=== PATIENT | female | born 1990 | race Caucasian/White ===

== ENCOUNTER 2017-06-26 13:28 | Emergency (ER) | payer BC, OTHER ==
[~2017-06-26] VITALS: Ht 162.6 cm; Wt 79.1 kg
[2017-06-26 13:27] VITALS: BP 107/65; PULSE 87; TEMP 97.8
[~2017-06-26 13:28] MED LIST: PRENATAL1 TA7 PO; TYLENOL 500MG500 MG PO
[2017-06-26 13:35] VITALS: BP 99/63; PULSE 88
[2017-06-26 14:21] VITALS: TEMP 97.9
[2017-06-26 15:18] LABS: BASO % 0.2 % (0.0-2.0); EOS % 0.3 % (0-4.0); GRAN # 4.4 (1.4-6.5); GRAN % 76.6 % (42.2-75.2); HEMATOCRIT 38.6 % (37.0-47.0); HEMOGLOBIN 12.7 g/dl (12.5-16.0); LYMPH # 0.9 (1.2-3.4); LYMPH % 14.9 % (20.0-51.0); MEAN CELL VOLUME 94 fl (80.0-100.0); MEAN CORPUSCULAR HEMOGLOBIN 31 pg (27.0-31.0); MEAN CORPUSCULAR HGB CONC 33 g/dl (33.0-37.0); MEAN PLATELET VOLUME 9.5 fl (7.4-10.4); MONO # 0.4 (0.1-0.6); MONO % 7.5 % (1.7-9.3); PLATELET COUNT 186 K/mm3 (130-400); RED BLOOD COUNT 4.12 M/mm3 (4.10-5.30); REDCELL DISTRIBUTION WIDTH-CV 12.9 % (11.5-14.5)
[2017-06-26 15:29] LABS: ALBUMIN 3.5 gm/dL (3.5-5.0); BILIRUBIN,TOTAL 0.5 mg/dL (0.0-1.0); CREATININE, serum 0.58 mg/dL (0.52-1.25); POTASSIUM 3.4 mmol/L (3.4-5.0); TOTAL PROTEIN 6.8 gm/dL (6.4-8.2)
[2017-06-26 15:44] LABS: COLLECTION METHOD CLEAN CATCH
[2017-06-26 15:49] LABS: PH 6 (5-8); SQUAMOUS EPITHELIAL None Seen /hpf; URINE APPEARANCE Clear; URINE BACTERIA None Seen /hpf; URINE BILIRUBIN Negative (NEGATIVE); URINE BLOOD Negative (NEGATIVE); URINE COLOR Yellow; URINE GLUCOSE Negative (NEGATIVE); URINE KETONE Trace (NEGATIVE); URINE LEUKOCYTE ESTERASE Negative (NEGATIVE); URINE NITRATE Negative (NEGATIVE); URINE PROTEIN(semi-quant) Negative (NEGATIVE); URINE RBC 0-2 /hpf; URINE UROBILINOGEN Negative (NEGATIVE)
[2017-06-26 16:31] VITALS: BP 109/75; PULSE 81
== END 2017-06-26 16:31 | disposition home or self-care (01) ==
LOC: COL.ER 13:28 → LDRO 13:28 → EDSTATUS 13:55 → COL.ER 16:31
PROVIDERS: Emergency Medicine
DX: O26.893 Other specified pregnancy related conditions, third trimester (principal); E86.9 Volume depletion, unspecified; R19.7 Diarrhea, unspecified; O21.9 Vomiting of pregnancy, unspecified; Z3A.33 33 weeks gestation of pregnancy
CPT/HCPCS: J2550; J7030

== ENCOUNTER 2017-08-10 06:33 | Inpatient (IN) | payer OTHER ==
[~2017-08-10] VITALS: Ht 162.6 cm; Wt 82.3 kg
[2017-08-10] VITALS (19 sets, daily range): BP systolic 95–162; BP diastolic 45–98; PULSE 62–78; TEMP 97.3–98.5
[2017-08-10 11:40] LABS: BASO % 0.3 % (0.0-2.0); EOS # 0.1 (0.0-0.7); GRAN # 6.2 (1.4-6.5); GRAN % 65.8 % (42.2-75.2); HEMATOCRIT 38.5 % (37.0-47.0); HEMOGLOBIN 12.7 g/dl (12.5-16.0); LYMPH # 2.1 (1.2-3.4); LYMPH % 22.4 % (20.0-51.0); MEAN CELL VOLUME 93 fl (80.0-100.0); MEAN CORPUSCULAR HEMOGLOBIN 31 pg (27.0-31.0); MEAN CORPUSCULAR HGB CONC 33 g/dl (33.0-37.0); MONO # 0.9 (0.1-0.6); MONO % 9.7 % (1.7-9.3); PLATELET COUNT 201 K/mm3 (130-400); RED BLOOD COUNT 4.14 M/mm3 (4.10-5.30); REDCELL DISTRIBUTION WIDTH-CV 14.6 % (11.5-14.5)
[2017-08-11] VITALS: BP 105/66; PULSE 72; TEMP 98.3
[2017-08-11 07:09] LABS: HEMATOCRIT 34.2 % (37.0-47.0); HEMOGLOBIN 11.3 g/dl (12.5-16.0)
[2017-08-11 07:26] VITALS: BP 107/51; PULSE 93; TEMP 98.9
[2017-08-11] MEDS ORDERED: MOTRIN 800800 MG/TAB PO (11:51)
[2017-08-11] MEDS ORDERED: PERCOCET 325 MG1 TA2 PO (11:51)
[2017-08-11 15:46] VITALS: BP 101/52; PULSE 85; TEMP 97.5
[2017-08-11 20:15] VITALS: BP 110/65; PULSE 82; TEMP 97.8
[2017-08-12 07:45] VITALS: BP 114/74; PULSE 76; TEMP 98.2
== END 2017-08-12 12:34 | disposition home or self-care (01) | DRG 766 ==
LOC: LDR 06:33 → OB 08:34
PROVIDERS: Obstetrics & Gynecology
PROC: 10D00Z1 Extraction of Products of Conception, Low, Open Approach (ICD-10-PCS; principal; 2017-08-10)
DX: O34.211 Maternal care for low transverse scar from previous cesarean delivery (principal); N85.8 Other specified noninflammatory disorders of uterus; Z3A.39 39 weeks gestation of pregnancy; Z37.0 Single live birth
CPT/HCPCS: J0690; J1885; J2175; J2405; J2590; J3010; J7120